=== PATIENT | female | born 1975 | race Caucasian/White ===

== ENCOUNTER 2025-04-22 14:45 | Outpatient (RCR) | payer OTHER, SELFPAY | END 2025-06-30 12:31 | disposition home or self-care (01) | PROVIDERS: PCP Student in an Organized Health Care Education/Training Program; Visit Provider Student in an Organized Health Care Education/Training Program | DX: M77.8 Other enthesopathies, not elsewhere classified (principal); Z51.89 Encounter for other specified aftercare | CPT/HCPCS: 97110; 97161 ==